=== PATIENT | male | born 1975 | race Caucasian/White ===

== ENCOUNTER 2017-08-06 22:14 | Emergency (ER) | payer SELFPAY ==
[2017-08-06 22:22] VITALS: BP 148/98; PULSE 82; TEMP 98.1; BMI 28.8
--- NOTE | 2017-08-06 22:35 | PDOC ---
History of Present Illness - General History Source: Patient Exam Limitations: No Limitations - History of Present Illness Initial Comments: 08/06/17 22:42 The patient is a 41 year old male with no significant PMH who presents to the emergency department with a pustule on the right forearm. The patient states he was seen two days ago at an urgent care, told he had MRSA and was discharged on doxycycline and bacitracin. At presentation, the pustule appears to be draining with no signs of streaking. The patient states he had another pustule on the thigh that dried up after doxy and bacitracin use. However, the patient reports the pustule on his right forearm is not drying up and is causing him pain prompting him to come to the ER. The patient denies chest pain, shortness of breath, headache and dizziness. Denies fever, chills, nausea, vomit, diarrhea and constipation. Denies dysuria, frequency, urgency and hematuria. Allergies: NKA Past surgical history: None reported. Social history: No reported alcohol,drug, or cigarette use. <Preeti Cruz - Last Filed: 08/06/17 22:55> <Carlyn Welsh - Last Filed: 08/06/17 23:41> - General Chief Complaint: Redness To Affected Area Stated Complaint: PAIN Time Seen by Provider: 08/06/17 22:23 Past History <Preeti Cruz - Last Filed: 08/06/17 22:55> - Past Medical History COPD: No - Suicide/Smoking/Psychosocial Hx Smoking History: Never smoked <Carlyn Welsh - Last Filed: 08/06/17 23:41> - Past Medical History Allergies/Adverse Reactions: Allergies Allergy/AdvReac Type Severity Reaction Status Date / Time No Known Allergies Allergy Verified 08/06/17 22:19 Home Medications: Ambulatory Orders Doxycycline Monohydrate [Monodox] 100 mg PO Q12H 08/06/17 Mupirocin Cream [Bactroban 2% Cream -] 1 applic TP BID 08/06/17 Review of Systems - Review of Systems Able to Perform ROS?: Yes Comments:: 08/06/17 22:55 CONSTITUTIONAL: Absent: fever, no chills, no fatigue EYES: Absent: visual changes ENT: Absent: ear pain, no sore throat CARDIOVASCULAR: Absent: chest pain, no palpitations RESPIRATORY: Absent: cough, no SOB GI: Absent: abdominal pain, no nausea, no vomiting, no constipation, no diarrhea GENITOURINARY: Absent: dysuria, no frequency, no hematuria MUSKULOSKELETAL: Absent: back pain, no arthralgia, no myalgia SKIN: Absent: Present: Pustule on the right forearm. NEURO: Absent: headache <Preeti Cruz - Last Filed: 08/06/17 22:55> *Physical Exam - Vital Signs Last Vital Signs Temp Pulse Resp BP Pulse Ox 98.1 F 82 18 148/98 100 08/06/17 22:20 08/06/17 22:20 08/06/17 22:20 08/06/17 22:20 08/06/17 22:20 - Physical Exam Comments: 08/06/17 22:58 GENERAL: Well-appearing, well-nourished. No apparent distress. HEENT: Normocephalic, atraumatic. PERRL, EOM intact. CARDIOVASCULAR: Normal S1, S2. Regular rate and rhythm. PULMONARY: Clear to auscultation bilaterally. ABDOMEN: Soft, non-distended, non-tender. EXTREMITIES: Normal ROM in all four extremities. No gross deformities. SKIN: Warm, dry. (+) Pustule on the right forearm tender to palpation. NEUROLOGICAL: No focal neurological deficits. <Preeti Cruz - Last Filed: 08/06/17 22:55> - Vital Signs Last Vital Signs Temp Pulse Resp BP Pulse Ox 98.1 F 82 18 148/98 100 08/06/17 22:20 08/06/17 22:20 08/06/17 22:20 08/06/17 22:20 08/06/17 22:20 <Carlyn Welsh - Last Filed: 08/06/17 23:41> ED Treatment Course - LABORATORY CBC & Chemistry Diagram: 08/06/17 22:59 <Carlyn Welsh - Last Filed: 08/06/17 23:41> *DC/Admit/Observation/Transfer - Attestations Scribe Attestion: 08/06/17 23:00 Documentation prepared by Preeti Cruz, acting as medical director of hospice for Carlyn Welsh MD. <Preeti Cruz - Last Filed: 08/06/17 22:55> <BlaiseCarlynmary ann Larson - Last Filed: 08/06/17 23:41> Diagnosis at time of Disposition: Skin abscess Qualifiers: Site of cutaneous abscess: extremity Site of cutaneous abscess of extremity: upper extremity Laterality: right Qualified Code(s): L02.413 - Cutaneous abscess of right upper limb - Discharge Dispostion Disposition: HOME Condition at time of disposition: Stable - Referrals Referrals: Rodríguez Fuller MD [Staff Physician] - - Patient Instructions Printed Discharge Instructions: DI for Skin Abscess Additional Instructions: IT IS VERY IMPORTANT TO TAKE ALL YOUR ANTIBIOTICS APPLY YOUR TOPICAL OINTMENT TO THE ABSCESS TAKE MOTRIN OR ALEVE OR TYLENOL FOR PAIN RETURN FOR WORSENING SYMPTOMS
[2017-08-06 23:09] LABS: BASO % 0.6 % (0-2.0); EOS % 3.2 % (0-4.5); HEMATOCRIT 40.3 % (35.4-49); LYMPH % 24.2 % (8-40); MCH 31.4 pg (25.7-33.7); MCHC 34.9 g/dl (32.0-35.9); MEAN CELL VOLUME 90.2 fl (80-96); MEAN PLT VOLUME 8.4 fl (7.5-11.1); MONO % 11.3 % (3.8-10.2); NEUT % 60.7 % (42.8-82.8); PLATELET COUNT 262 K/MM3 (134-434); RBC 4.46 M/mm3 (4.00-5.60); RDW 12.9 % (11.9-15.9); WHITE BLOOD COUNT 7.3 K/mm3 (4.0-10.0)
[2017-08-06] MEDS ORDERED: IBUPROFEN 600 MG TABLET (FP) PO ONE ×2 (23:40→23:59)
== END 2017-08-07 00:04 | disposition home or self-care (01) ==
LOC: JER 22:14
DX: L02.413 Cutaneous abscess of right upper limb (principal)
CPT/HCPCS: 36415; 85025; 99281-25